=== PATIENT | female | born 1995 | race Caucasian/White ===

== ENCOUNTER 2017-03-09 23:12 | Emergency (ER) | payer MEDICAID ==
[~2017-03-09] VITALS: Ht 160 cm; Wt 60.8 kg
[2017-03-09 23:33] LABS: LYMPH # 2.2 K/mm3 (0.7-4.5); LYMPH % 24.5 % (10-50.0)
[2017-03-09 23:55] LABS: BUN 11 mg/dL (7-18)
[2017-03-09 23:59] LABS: GFR (ESTIMATED) 105 ML/MIN (59-)
--- NOTE | 2017-03-10 00:12 | Emergency Room Report ---
History of Present Illness Time Seen by MD Paulino Presenting Problem in Triage Pt arrived:Walked Presenting Problem:CHEST PAIN. 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 N Clinical Suspician of Infection? N Mental Status: 1 - Regular (Normal Baseline) Sepsis Risk:Possible Sepsis Risk Have you (or family members/close friends) recently traveled outside the [place]? N If Yes, where/when: Have you had exposure to infectious disease within the past month? TB? Other? Specify: Source patient, RN notes reviewed, family, RN/MD Exam Limitations no limitations Comment Patient has a history of pleurisy. She is here with sudden onset of precordial chest pain, worse with deep inspiration, denies any shortness of breath / diaphoresis / radiation. ALLERGIES Coded Allergies: No Known Allergies (03/09/17) History Medical History General CAD? No Angina: No MT: No Hypertension? No Hyperlipidemia? No CHF? No DVT? No PE? No COPD? No Asthma? No Anemia? No GERD? No Gastric ulcers? No GI Bleed? No Hernia? No Thyroid Problems? No Hypothyroidism? No CVA? No Seizures? No Diabetes? No Renal Insuffiency? No End Stage Renal Disease? No UTI? No Stones? No BPH? No GB Disease: No Nephritic Syndrome? No Asplenia? No Hepatitis? No Sickle Cell Disease? No Arthritis? No Migraines? No Cataracts? No Glaucoma? No MRSA? No HIV? No TB? No Anxiety? No Depression? No Cancer? No More? 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 No: respiratory distress, non tender chest. Lung Sounds bilateral: normal breath sounds, lungs clear. 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 No Comment Upon reevaluation patient appears medically stable, no acute distress. Advised patient to take the Medrol dose pack prescribed, as well as [id number] Motrin for pain. If no better, patient to follow up with PCP per discharge instructions. Results/Orders Laboratory Tests 03/09/17 3795: Sodium 140, Potassium 3.5, Chloride 104, Carbon Dioxide 28, BUN 11, Creatinine 0.7, Estimated Creat Clear 121, Estimated GFR (MDRD) 105, Glucose 92, Calcium 8.9, Total Bilirubin 0.4, AST 12 L, ALT 19, Alkaline Phosphatase 57, Creatine Kinase 34, CK-MB (CK-2) Rel Index 1.5, CK and CKMB Interp < 0.5, Troponin I 0.06 , B-Natriuretic Peptide 19, Total Protein 7.2, Albumin 4.3, Globulin 2.9, Albumin/Globulin Ratio 1.5, PT 12.5 H, INR 1.16 H, APTT 26.4, D-Dimer < 100, WBC 8.9, RBC 4.64, Hgb 14.0, Hct 40.8, MCV 87.9, RDW 12.2, Plt Count 247, MPV 8.7, Gran % 65.7, Gran # 5.8, Lymphocytes % 24.5, Monocytes % 5.6, Eosinophils % 3.7, Basophils % 0.5, Lymphocytes # 2.2, Monocytes # 0.5, Eosinophils # 0.3, Basophils # 0.0, PUBS MCHC 34.2, MCH 30.1 Current Medication Orders Sig/Panchito Start time Last Medication Dose Route Stop Time Status Admin Ketorolac 30 MG ONCE ONE 03/10 0015 DC 03/10 Tromethamine IV 03/10 0016 0017 Ondansetron HCl 4 MG ONCE ONE 03/10 0015 DC 03/10 IV 03/10 0016 0016 Ondansetron HCl 0 .STK-MED ONE 03/10 0013 DC .ROUTE Ketorolac 0 .STK-MED ONE 03/10 0010 DC Tromethamine .ROUTE Aspirin 325 MG ONCE ONE 03/09 2330 CAN PO 03/09 2331 Nitroglycerin 0.4 MG [id number] PRN 03/09 2330 DC SL Sodium Chloride 10 ML PRN PRN 03/09 233 DC IV 03/10 231 Orders Procedure Date/time Status ELECTROCARDIOGRAM REQUEST 03/09 2317 Active IV SALINE LOCK 03/09 2317 Active SETTER COLD ROLLING MACHINE 03/09 2317 Active PARTIAL THROMBOPLASTIN TIME 03/09 2317 Complete PROTHROMBIN TIME 03/09 2317 Complete D-DIMER 03/09 2317 Complete COMPLETE METABOLIC PANEL 03/09 2317 Complete CBC WITH AUTO DIFF 03/09 2317 Complete CARDIAC ENZYMES 03/09 2317 Complete BRAIN NATRIURETIC PEPTIDE 03/09 2317 Complete 12 LEAD EKG-SUZI (INITIAL) 03/09 UNK Active 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 of ischemic chgs, no ectopy, normal QRS, normal IN, no EKG for comparison, non-spec. ST/Twave chgs, ST elevation, ST depression, LBBB, RBBB, ectopy, abnormal Q waves XRAY/CT/US XRAY/CT/US XRAY chest XR interpretation by reviewed by me Xray Results no infiltrates, normal heart size, normal lung inflation kelly Departure Departure Time of Disposition 001 Disposition DC Home or Self Care(routine) Clinical Impression Primary Impression: Pleurisy Condition STABLE Patient Instructions DI for Pleurisy Additional Instructions Please take Motrin every 6 hours as needed for pain, follow-up with your family physician in 2-3 days if no better. Discharge Counseling Counseled pt/family regarding diagnosis, test results, medications/RX, home care, follow up needs Comment Please take Motrin every 6 hours as needed for pain, follow-up with your family physician in 2-3 days if no better. Prescriptions Current Visit Scripts Methylprednisolone (Medrol Dose Hang) 4 MG PO UD #1 HANG TAKE DIRECTED ON PACKAGING ED Critical Care Critical Care No at 0616
--- NOTE | 2017-03-10 00:12 | Emergency Room Report ---
History of Present Illness Time Seen by MD Paulino Presenting Problem in Triage Pt arrived:Walked Presenting Problem:CHEST PAIN. 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 N Clinical Suspician of Infection? N Mental Status: 1 - Regular (Normal Baseline) Sepsis Risk:Possible Sepsis Risk Have you (or family members/close friends) recently traveled outside the [place]? N If Yes, where/when: Have you had exposure to infectious disease within the past month? TB? Other? Specify: Source patient, RN notes reviewed, family, RN/MD Exam Limitations no limitations Comment Patient has a history of pleurisy. She is here with sudden onset of precordial chest pain, worse with deep inspiration, denies any shortness of breath / diaphoresis / radiation. ALLERGIES Coded Allergies: No Known Allergies (03/09/17) History Medical History General CAD? No Angina: No VA: No Hypertension? No Hyperlipidemia? No CHF? No DVT? No PE? No COPD? No Asthma? No Anemia? No GERD? No Gastric ulcers? No GI Bleed? No Hernia? No Thyroid Problems? No Hypothyroidism? No CVA? No Seizures? No Diabetes? No Renal Insuffiency? No End Stage Renal Disease? No UTI? No Stones? No BPH? No GB Disease: No Nephritic Syndrome? No Asplenia? No Hepatitis? No Sickle Cell Disease? No Arthritis? No Migraines? No Cataracts? No Glaucoma? No MRSA? No HIV? No TB? No Anxiety? No Depression? No Cancer? No More? 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 No: respiratory distress, non tender chest. Lung Sounds bilateral: normal breath sounds, lungs clear. 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 No Comment Upon reevaluation patient appears medically stable, no acute distress. Advised patient to take the Medrol dose pack prescribed, as well as [id number] Motrin for pain. If no better, patient to follow up with PCP per discharge instructions. Results/Orders Laboratory Tests 03/09/17 9415: Sodium 140, Potassium 3.5, Chloride 104, Carbon Dioxide 28, BUN 11, Creatinine 0.7, Estimated Creat Clear 121, Estimated GFR (MDRD) 105, Glucose 92, Calcium 8.9, Total Bilirubin 0.4, AST 12 L, ALT 19, Alkaline Phosphatase 57, Creatine Kinase 34, CK-MB (CK-2) Rel Index 1.5, CK and CKMB Interp < 0.5, Troponin I 0.06 , B-Natriuretic Peptide 19, Total Protein 7.2, Albumin 4.3, Globulin 2.9, Albumin/Globulin Ratio 1.5, PT 12.5 H, INR 1.16 H, APTT 26.4, D-Dimer < 100, WBC 8.9, RBC 4.64, Hgb 14.0, Hct 40.8, MCV 87.9, RDW 12.2, Plt Count 247, MPV 8.7, Gran % 65.7, Gran # 5.8, Lymphocytes % 24.5, Monocytes % 5.6, Eosinophils % 3.7, Basophils % 0.5, Lymphocytes # 2.2, Monocytes # 0.5, Eosinophils # 0.3, Basophils # 0.0, PUBS MCHC 34.2, MCH 30.1 Current Medication Orders Sig/Panchito Start time Last Medication Dose Route Stop Time Status Admin Ketorolac 30 MG ONCE ONE 03/10 0015 DC 03/10 Tromethamine IV 03/10 0016 0017 Ondansetron HCl 4 MG ONCE ONE 03/10 0015 DC 03/10 IV 03/10 0016 0016 Ondansetron HCl 0 .STK-MED ONE 03/10 0013 DC .ROUTE Ketorolac 0 .STK-MED ONE 03/10 0010 DC Tromethamine .ROUTE Aspirin 325 MG ONCE ONE 03/09 2330 CAN PO 03/09 2331 Nitroglycerin 0.4 MG [id number] PRN 03/09 2330 DC SL Sodium Chloride 10 ML PRN PRN 03/09 233 DC IV 03/10 231 Orders Procedure Date/time Status ELECTROCARDIOGRAM REQUEST 03/09 2317 Active IV SALINE LOCK 03/09 2317 Active RECREATION FACILITY ATTENDANT 03/09 2317 Active PARTIAL THROMBOPLASTIN TIME 03/09 2317 Complete PROTHROMBIN TIME 03/09 2317 Complete D-DIMER 03/09 2317 Complete COMPLETE METABOLIC PANEL 03/09 2317 Complete CBC WITH AUTO DIFF 03/09 2317 Complete CARDIAC ENZYMES 03/09 2317 Complete BRAIN NATRIURETIC PEPTIDE 03/09 2317 Complete 12 LEAD EKG-SUZI (INITIAL) 03/09 UNK Active 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 of ischemic chgs, no ectopy, normal QRS, normal [place], no EKG for comparison, non-spec. ST/Twave chgs, ST elevation, ST depression, LBBB, RBBB, ectopy, abnormal Q waves XRAY/CT/US XRAY/CT/US XRAY chest XR interpretation by reviewed by me Xray Results no infiltrates, normal heart size, normal lung inflation kelly Departure Departure Time of Disposition 001 Disposition DC Home or Self Care(routine) Clinical Impression Primary Impression: Pleurisy Condition STABLE Patient Instructions DI for Pleurisy Additional Instructions Please take Motrin every 6 hours as needed for pain, follow-up with your family physician in 2-3 days if no better. Discharge Counseling Counseled pt/family regarding diagnosis, test results, medications/RX, home care, follow up needs Comment Please take Motrin every 6 hours as needed for pain, follow-up with your family physician in 2-3 days if no better. Prescriptions Current Visit Scripts Methylprednisolone (Medrol Dose Hang) 4 MG PO UD #1 HANG TAKE DIRECTED ON PACKAGING ED Critical Care Critical Care No at 0616
[2017-03-10] MEDS ORDERED: MEDROL 4MG. DOSE4 MG PO (00:15)
[2017-03-10 00:19] VITALS: BP 114/87
--- NOTE | 2017-03-10 05:29 | RADIOLOGY REPORT PS360 ---
CHEST(2 VIEWS-NOT PORTABLE) HISTORY: CHEST PAIN ORDERING PHYSICIAN: Ezequiel Bal MD PATIENT AGE: 21 years COMPARISON: None available FINDINGS: Pectus excavatum deformity is present with increased density and silhouetting out of the right heart border. No evidence of CHF. Nodular opacity is present in the right upper lobe medially and may be due to granuloma. The remaining lungs are clear. No acute bony anomalies. IMPRESSION: 1. No acute finding. 2. Pectus excavatum
== END 2017-03-10 00:20 | disposition home or self-care (01) ==
LOC: ER 23:12
PROVIDERS: Emergency Medicine
DX: R09.1 Pleurisy (principal)
CPT/HCPCS: J2405